=== PATIENT | male | born 1950 | race Caucasian/White ===

== ENCOUNTER → 2016-09-13 | Outpatient (CLI) | payer OTHER, MEDICARE | LOC: BHSO 10:17 | DX: F41.1 Generalized anxiety disorder (principal) ==

== ENCOUNTER → 2016-12-30 | Outpatient (CLI) | payer MEDICARE, OTHER | LOC: BHSO 09:14 | DX: F41.1 Generalized anxiety disorder (principal) ==

== ENCOUNTER → 2017-03-31 | Outpatient (CLI) | payer MEDICARE, OTHER | LOC: BHSO 09:58 | DX: F41.1 Generalized anxiety disorder (principal) ==

== ENCOUNTER → 2017-05-07 | Outpatient (CLI) | payer MEDICARE, OTHER | LOC: COL.RAD 09:32 | DX: Z13.6 Encounter for screening for cardiovascular disorders (principal) ==

== ENCOUNTER → 2017-07-01 | Outpatient (CLI) | payer MEDICARE, OTHER | LOC: BHSO 09:37 | DX: F33.1 Major depressive disorder, recurrent, moderate (principal) ==

== ENCOUNTER → 2017-10-10 | Outpatient (CLI) | payer MEDICARE, OTHER | LOC: BHSO 09:44 | DX: F33.1 Major depressive disorder, recurrent, moderate (principal) | CPT/HCPCS: G0463 ==

== ENCOUNTER → 2018-04-23 | Outpatient (CLI) | payer MEDICARE, OTHER | LOC: BHSO 09:02 | DX: F33.42 Major depressive disorder, recurrent, in full remission (principal) | CPT/HCPCS: G0463 ==

== ENCOUNTER → 2018-10-20 | Outpatient (CLI) | payer MEDICARE, OTHER | LOC: BHSO 09:59 | DX: F41.1 Generalized anxiety disorder (principal) | CPT/HCPCS: G0463 ==

== ENCOUNTER → 2019-04-08 | Outpatient (CLI) | payer MEDICARE, OTHER | LOC: BHSO 10:23 | DX: F41.1 Generalized anxiety disorder (principal) | CPT/HCPCS: G0463 ==

== ENCOUNTER → 2019-10-12 | Outpatient (CLI) | payer MEDICARE, OTHER | LOC: BHSO 10:39 | DX: F33.41 Major depressive disorder, recurrent, in partial remission (principal) | CPT/HCPCS: G0463 ==

== ENCOUNTER 2022-10-29 11:27 | Day surgery (SDC) | payer MEDICARE ==
[~2022-10-29] VITALS: Ht 177.8 cm; Wt 72.5 kg
[2022-10-29] VITALS (10 sets, daily range): BP systolic 117–158; BP diastolic 61–83; PULSE 71–84; TEMP 82–99
[2022-10-29] MEDS ORDERED: PYRIDIUM 100MG100 MG PO (13:53)
[2022-10-29] MEDS ORDERED: SYMMETREL100 MG PO (14:00)
[2022-10-29] MEDS ORDERED: CARBIDOPA/LEVODOPA PO (14:03)
[2022-10-29] MEDS ORDERED: DULCOLAX TAB5 MG PO (14:04)
[2022-10-29] MEDS ORDERED: LAMICTAL 100MG100 MG PO (14:06)
[2022-10-29] MEDS ORDERED: RITALIN 5MG5 MG/TAB PO (14:07)
[2022-10-29] MEDS ORDERED: FLOMAX 0.40.4 MG/CAP PO (14:08)
[2022-10-29] MEDS ORDERED: VITAMIN D31000 IU PO (14:08)
[2022-10-29] MEDS ORDERED: MULTI VITAMINS1 TAB PO (14:09)
[2022-10-29] MEDS ORDERED: MELATONIN ER10 MG PO (14:10)
--- NOTE | 2022-10-29 17:40 | NUR ---
PT TO ROOM 348 PER BED WITH REPORT FROM [facility] [facility]. VSS, ABDOMINAL INCISIONS CDI PATTI. PT REPORTS FEELING MUCH BETTER.
--- NOTE | 2022-10-29 20:51 | NUR ---
2000 RN AT BEDSIDE TO COMPLETE ASSESSMENT. PT RESTING IN BED COMFORTABLY. PT DENIES ANY PAIN AT THIS TIME. IS AT BEDSIDE. PT EDUCATED ON URINARY CATH. CBI RUNNING AT A SLOW MODERATE RATE WITH LIGHT PINK OUTPUT.
[2022-10-30 03:44] VITALS: BP 134/67; PULSE 81; TEMP 98.8
--- NOTE | 2022-10-30 05:41 | NUR ---
PT HAD AN UNEVENTFUL NIGHT. VITAL SIGNS REMAINED WITHIN NORMAL LIMITS, PT WAS ABLE TO REST, CBI RAN AT SLOW TO MODERATE WITH PEACH/PINK COLORED OUTPUT. PT DENIED ANY PAIN. PT RESTING IN BED NO NEW REQUESTS AT THIS TIME
[2022-10-30 08:00] VITALS: BP 157/78; PULSE 84; TEMP 99.4
--- NOTE | 2022-10-30 09:56 | NUR ---
PT RESTING IN BED. GALAN CATHETER PRIMED AND PULLED. VOIDED ON REMOVAL. 30 MLS EMPTIED FROM BALLOON. ASSISTED BY COOKIE PANDA.
--- NOTE | 2022-10-30 10:07 | NUR ---
PT STARTING 6 BTTL ROUTINE. DENIES NEEDS AT THIS TIME.
[2022-10-30 12:23] VITALS: BP 144/62; PULSE 99; TEMP 98
--- NOTE | 2022-10-30 12:51 | NUR ---
DISCHARGE INSTSRUCTIONS REVIEWED WITH PT AND . QUESTSIONS SOLICITED AND ANSWERED. PT LEFT UNIT PER WHEEL CHAIR WITH STAFF.
== END 2022-10-30 12:30 | disposition home or self-care (01) ==
LOC: SDCO 11:27 → SURG 16:00 → SDCO 10-30 12:30
DX: N40.1 Benign prostatic hyperplasia with lower urinary tract symptoms (principal); N20.0 Calculus of kidney; N21.0 Calculus in bladder; R39.12 Poor urinary stream; R35.1 Nocturia; Z79.899 Other long term (current) drug therapy
CPT/HCPCS: OP; C1769; C2617; J0690; J2704; J7120; Q9967